=== PATIENT | male | born 1970 | race Caucasian/White ===

== ENCOUNTER 2017-09-24 10:19 | Day surgery (SDC) | payer BC ==
[~2017-09-24 10:19] MED LIST: ACETAMINOPHEN 1,000 MG/100 ML BTL IV ONE; CEFAZOLIN 2 Gram 2 GM/50 ML BAG IVPB ONE; VANCOMYCIN HCL 1,000 MG in 0.9 % SODIUM CHLORIDE 250ML 250 ML IVPB ONE
[2017-09-24] MEDS ORDERED: MIDAZOLAM HCL 2MG/2ML VIAL IV ONE (10:20)
[2017-09-24] MEDS ORDERED: ENOXAPARIN 40 MG/0.4 ML SYR SQ ONE (10:20)
[2017-09-24] MEDS ORDERED: SEVOFLURANE 250 ML INH ONE (10:20)
[2017-09-24] MEDS ORDERED: BUPIVACAINE 0.75% W/EPI MPF 30ML VIAL IVP ONE (10:20)
[2017-09-24] MEDS ORDERED: PROPOFOL 10 MG/ML VIAL IV ONE (10:20)
[2017-09-24] MEDS ORDERED: LIDOCAINE 2% MDV (20MG/ML) 20ML VIAL IV ONE (10:20)
[2017-09-24 11:15] LABS: BLOOD UREA NITROGEN 14 mg/dL (6-20); CREATININE 0.8 mg/dL (0.7-1.2); EST GLOMERULAR FILTRATION RATE > 60 mL/min; GLUCOSE,RANDOM 94 mg/dL (74-109)
--- NOTE | 2017-09-24 21:01 | Operative Note ---
DATE: 09/24/2017 PREOPERATIVE DIAGNOSIS: INTERNAL DERANGEMENT RIGHT KNEE. POSTOPERATIVE DIAGNOSES: 1. DIFFUSE SYNOVITIS. 2. GRADE 3 CHONDROMALACIA PATELLA. 3. COMPLEX TEAR INVOLVING MOST OF THE POSTERIOR HORN OF THE MEDIAL MENISCUS. 4. GRADE 3 CHONDROMALACIA OF THE MEDIAL FEMORAL CONDYLE. 5. SMALL FLAP TEAR INVOLVING THE ANTERIOR HORN OF THE LATERAL MENISCUS. 6. GRADE 3 CHONDROMALACIA OF THE LATERAL FEMORAL CONDYLE. PROCEDURE: 1. RIGHT KNEE ARTHROSCOPY WITH PARTIAL MEDIAL AND LATERAL MENISCECTOMY. 2. RIGHT KNEE ARTHROSCOPY WITH COMPLETE SYNOVECTOMY. 3. RIGHT KNEE ARTHROSCOPY WITH INTERARTICULAR DEBRIDEMENT AND CHONDROPLASTY. STAFF SURGEON: LEWIS ESTEVEZ M.D. ANESTHESIA: GENERAL. PREPARATION: CHLORAPREP. INDIVIDUAL CONSIDERATIONS: NONE. PROCEDURE: The patient was taken to the Operating Room and placed supine on the operating table. He had a successful induction with general anesthetic. His right lower extremity was prepped and draped in the usual fashion. The patient had a superior lateral inflow cannula placed. The skin was infiltrated with 0.75% Marcaine with Epinephrine prior. A huge clear effusion was drained and the knee was inflated with normal saline. An inferior medial and an inferior lateral portal were made in a similar fashion. The arthroscope was introduced through the inferior lateral portal up into the pouch. The patellofemoral joint showed diffuse synovitis in the pouch and both gutters, small grade 3 changes in the patella. The notch looked pretty good. A complete synovectomy was performed in the pouch and both gutters and even into the fat pad. The undersurface of the patella was smooth medially. He had a complex multiple degenerative split tear involving the posterior horn of the medial meniscus, which was basically debrided out with basket forceps and a shaver. There was small grade 3 change in the femoral condyle medially, which was smoothed with a shaver. In the notch, the cruciates were normal. He had a small anterior flap tear of the anterior horn of the lateral meniscus, which was debrided out with a shaver and baskets. The remaining cartilage looked good except there was a chondral lesion about the size of a quarter, which had peeling cartilage but luckily not down to bone, starting from 45 to ending to about 70 degrees of flexion, again about the size of a quarter. The unstable cartilage was debrided with a shaver. After irrigation, the portals were closed with jesus. 20 mL of 0.25% plain Marcaine along with 4 mg of Morphine and 40 mg of DepoMedrol were injected into the knee and a sterile Bulkee compressive dressing was applied. The patient tolerated the procedure well. Needle and sponge counts were correct. Estimated blood loss was minimal and he was taken back to Recovery in good condition. There were no complications. JOB NUMBER: [id number] MTDD
== END 2017-09-24 14:10 | disposition home or self-care (01) ==
LOC: SUR 10:19
PROVIDERS: ATTEND Orthopaedic Surgery
DX: M23.221 Derangement of posterior horn of medial meniscus due to old tear or injury, right knee (principal); M94.261 Chondromalacia, right knee; M23.241 Derangement of anterior horn of lateral meniscus due to old tear or injury, right knee; M65.861 Other synovitis and tenosynovitis, right lower leg; I10 Essential (primary) hypertension
CPT/HCPCS: 80048; J1650; J3490; J7050